=== PATIENT | female | born 1970 | race Caucasian/White ===

== ENCOUNTER → 2016-06-01 | Outpatient (CLI) | payer OTHER ==
[~2016-06-01] MED LIST: DOXYCYCLINE 10100 MG PO; NO HOME MEDICATIONS; PREDNISONE20 MG PO
== END ==
LOC: COL.RAD 13:30
DX: K44.9 Diaphragmatic hernia without obstruction or gangrene (principal); K21.9 Gastro-esophageal reflux disease without esophagitis

== ENCOUNTER 2016-06-03 07:08 | Day surgery (SDC) | payer OTHER ==
[2016-06-03] VITALS (11 sets, daily range): BP systolic 122–162; BP diastolic 74–94; PULSE 74–95; TEMP 97.8–98.4
[~2016-06-03] VITALS: Ht 157.5 cm; Wt 66.8 kg
[2016-06-04 02:15] VITALS: BP 144/82; PULSE 84; TEMP 98
[2016-06-04 06:13] VITALS: BP 134/75; PULSE 97; TEMP 98.4
== END 2016-06-04 10:35 | disposition home or self-care (01) ==
LOC: SDCO 07:08 → SURG 12:00 → SDCO 06-04 10:35
DX: K44.9 Diaphragmatic hernia without obstruction or gangrene (principal); K21.9 Gastro-esophageal reflux disease without esophagitis; Z87.01 Personal history of pneumonia (recurrent); Z79.899 Other long term (current) drug therapy
CPT/HCPCS: OP; A9284; C1713; J0330; J0690; J1100; J2370; J2405; J2704; J2710; J3010; J7120